=== PATIENT | male | born 1990 | race Caucasian/White ===

== ENCOUNTER 2020-05-31 07:18 | Emergency (ER) | payer MEDICAID ==
[~2020-05-31] VITALS: Ht 182.9 cm; Wt 97.1 kg
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
--- NOTE | 2020-05-31 07:40 | NUR ---
BILATERAL EYES WASHED OUT WITH NORMAL SALINE.
--- NOTE | 2020-05-31 08:57 | NUR ---
PATIENT STS HE FEELS BETTER, ABLE TO OPEN EYES AND SEE CLEARLY. NO DISTRESS OR PAIN REPORTED. NEEDS ATTENDED. Patient given written and verbal discharge instructions. Patient verbalizes understanding of instructions. Patient is ambulatory with steady gait. Refuses offer of [facility] placement. Patient given list of available shelters in surrounding area.
[2020-05-31 09:01] VITALS: BP 132/90
== END 2020-05-31 09:02 | disposition home or self-care (01) ==
LOC: ER 07:23
DX: H10.213 Acute toxic conjunctivitis, bilateral (principal); Y08.89XA Assault by other specified means, initial encounter; Y93.89 Activity, other specified; Y92.89 Other specified places as the place of occurrence of the external cause; Y99.8 Other external cause status

== ENCOUNTER 2020-11-16 08:35 | Emergency (ER) | payer MEDICAID ==
[~2020-11-16] VITALS: Ht 182.9 cm; Wt 81.6 kg
[2020-11-16 08:44] VITALS: BP 134/75
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
[2020-11-16] MEDS ORDERED: IBUP-1955 PO (09:35)
[2020-11-16] MEDS ORDERED: IBUPROFEN 600 MG TABLET ONE (09:37)
--- NOTE | 2020-11-16 09:55 | NUR ---
MOTRIN 600 MG PO GIVEN FOR C/O RIGHT HAND PAIN 11/19. WILL CONTINUE TO MONITOR.
[2020-11-16] MEDS ORDERED: IBUPROFEN 600 MG TABLET PO ONE (10:00)
--- NOTE | 2020-11-16 10:12 | NUR ---
The patient alert and oriented x4. Denies pain. Patient discharged to home in stable condition. Written and verbal after care instructions given. Patient verbalizes understanding of instruction.
== END 2020-11-16 10:13 | disposition home or self-care (01) ==
LOC: ER 08:37
DX: S60.221A Contusion of right hand, initial encounter (principal); S60.414A Abrasion of right ring finger, initial encounter; S60.416A Abrasion of right little finger, initial encounter; Y08.89XA Assault by other specified means, initial encounter; Y93.89 Activity, other specified; Y92.89 Other specified places as the place of occurrence of the external cause; Y99.8 Other external cause status
CPT/HCPCS: 73130-TC

== ENCOUNTER 2021-07-30 10:50 | Emergency (ER) | payer MEDICAID ==
[~2021-07-30] VITALS: Ht 182.9 cm; Wt 86.2 kg
[~2021-07-30 10:50] MED LIST: IBUP-1955 PO
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
[2021-07-30 12:52] VITALS: BP 131/85
--- NOTE | 2021-07-30 12:52 | NUR ---
Patient discharged to home in stable condition. Written and verbal after care instructions given. Patient verbalizes understanding of instruction.
== END 2021-07-30 12:52 | disposition home or self-care (01) ==
LOC: ER 11:13
DX: T65.891A Toxic effect of other specified substances, accidental (unintentional), initial encounter (principal); T26.61XA Corrosion of cornea and conjunctival sac, right eye, initial encounter; Y93.89 Activity, other specified; Y92.89 Other specified places as the place of occurrence of the external cause; Y99.8 Other external cause status

== ENCOUNTER 2021-09-02 01:59 | Emergency (ER) | payer MEDICAID ==
[~2021-09-02] VITALS: Ht 182.9 cm; Wt 99.8 kg
[2021-09-02 02:40] VITALS: BP 138/89
[2021-09-02] MEDS ORDERED: OXYM15MI4 NS (02:58)
--- NOTE | 2021-09-02 03:03 | NUR ---
Patient discharged to home in stable condition. rx and Written and verbal after care instructions given. Patient verbalizes understanding of instruction.
== END 2021-09-02 03:03 | disposition home or self-care (01) ==
LOC: ER 02:02
DX: R09.81 Nasal congestion (principal); F17.200 Nicotine dependence, unspecified, uncomplicated; Z98.890 Other specified postprocedural states; Z60.2 Problems related to living alone

== ENCOUNTER 2022-04-27 17:27 | Emergency (ER) | payer MEDICAID ==
[~2022-04-27] VITALS: Ht 182.9 cm; Wt 96.2 kg
[~2022-04-27 17:27] MED LIST changes: +OXYM15MI4 NS
[2022-04-27 17:47] VITALS: BP 125/90
--- NOTE | 2022-04-27 19:44 | NUR ---
Patient discharged to home in stable condition. Written and verbal after care instructions given. Patient verbalizes understanding of instruction.
[2022-04-28] MEDS ORDERED: MUPI22OI2 TP (12:23)
== END 2022-04-27 19:44 | disposition home or self-care (01) ==
LOC: ER 17:27
DX: Z53.21 Procedure and treatment not carried out due to patient leaving prior to being seen by health care provider (principal)

== ENCOUNTER 2022-04-28 11:07 | Emergency (ER) | payer MEDICAID ==
[~2022-04-28] VITALS: Ht 182.9 cm; Wt 96.2 kg
[2022-04-28 11:30] VITALS: BP 136/90
[2022-04-28] MEDS ORDERED: LIDOCAINE 1% INJ 50 ML MDV IJ ONE (11:30)
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
[2022-04-28] MEDS ORDERED: MUPI22OI2 TP (12:23)
--- NOTE | 2022-04-28 12:31 | NUR ---
Patient discharged to home in stable condition. Written and verbal after care instructions given. Patient verbalizes understanding of instruction.
== END 2022-04-28 12:31 | disposition home or self-care (01) ==
LOC: ER 11:09
DX: L02.511 Cutaneous abscess of right hand (principal); F17.200 Nicotine dependence, unspecified, uncomplicated; Z60.2 Problems related to living alone; Z79.899 Other long term (current) drug therapy

== ENCOUNTER 2022-08-31 22:34 | Emergency (ER) | payer MEDICAID ==
[~2022-08-31] VITALS: Ht 182.9 cm; Wt 99.8 kg
[~2022-08-31 22:34] MED LIST changes: +MUPI22OI2 TP
[2022-08-31 22:48] VITALS: BP 136/94
[2022-09-01] MEDS ORDERED: IBUPROFEN 600 MG TABLET ONE (00:03)
--- NOTE | 2022-09-01 00:05 | NUR ---
Patient discharged to home in stable condition. Written and verbal after care instructions given. Patient verbalizes understanding of instruction. Pt ambulatory with a steady gait
[2022-09-01] MEDS ORDERED: IBUPROFEN 600 MG TABLET PO ONE (00:30)
== END 2022-09-01 00:08 | disposition home or self-care (01) ==
LOC: ER 22:35
DX: H00.015 Hordeolum externum left lower eyelid (principal); F17.200 Nicotine dependence, unspecified, uncomplicated; Z98.890 Other specified postprocedural states; Z60.2 Problems related to living alone; Z79.899 Other long term (current) drug therapy

== ENCOUNTER 2022-10-05 04:05 | Emergency (ER) | payer MEDICAID ==
[~2022-10-05] VITALS: Ht 190.5 cm; Wt 107.7 kg
--- NOTE | 2022-10-05 04:40 | NUR ---
SEEN AND EXAMINED BY DR MCCRACKEN
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
--- NOTE | 2022-10-05 05:08 | NUR ---
PT BROUGHT TO CT DEPT
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
--- NOTE | 2022-10-05 05:31 | NUR ---
[facility] AT BEDSIDE
[2022-10-05] MEDS ORDERED: NABU-141 PO (05:46)
[2022-10-05] MEDS ORDERED: LEVETIRACETAM (500MG) 500 MG in IV NS 0.9% 100 ML IV SCH (06:30)
[2022-10-05 06:36] VITALS: BP 151/93
--- NOTE | 2022-10-05 06:36 | NUR ---
Patient discharged to home in stable condition. Written and verbal after care instructions given. Patient verbalizes understanding of instruction. Pt ambulatory with a steady gait
== END 2022-10-05 06:36 | disposition home or self-care (01) ==
LOC: ER 04:09
DX: S00.83XA Contusion of other part of head, initial encounter (principal); F17.200 Nicotine dependence, unspecified, uncomplicated; Z98.890 Other specified postprocedural states; Z60.2 Problems related to living alone; Z79.899 Other long term (current) drug therapy; Y09 Assault by unspecified means; Y93.89 Activity, other specified; Y92.89 Other specified places as the place of occurrence of the external cause; Y99.8 Other external cause status
CPT/HCPCS: 70486-TC; J1953; J7030

== ENCOUNTER 2024-08-08 19:55 | Emergency (ER) | payer OTHER ==
[~2024-08-08] VITALS: Ht 182.9 cm; Wt 95.3 kg
[~2024-08-08 19:55] MED LIST changes: +NABU-141 PO
[2024-08-09 00:15] VITALS: BP 136/82; TEMP 98.1; O2SAT 98
[2024-08-10 06:07] LABS: RAPID PLASMA REAGIN QUAL. Non Reactive (Non Reactive)
[2024-08-11 11:36] LABS: HIV-1 p24 ANTIGEN NON REACTIVE (NONREACTIVE); HIV-1/2 ANTIBODY NON REACTIVE (NONREACTIVE)
== END 2024-08-09 00:16 | disposition home or self-care (01) ==
LOC: ER 19:58
DX: R68.84 Jaw pain (principal); F17.200 Nicotine dependence, unspecified, uncomplicated; Z60.2 Problems related to living alone
CPT/HCPCS: 36415; 70486-TC; 86592; 86593; 87806

== ENCOUNTER 2024-08-12 00:58 | Emergency (ER) | payer OTHER | END 2024-08-12 02:48 | disposition left against medical advice (07) | LOC: ER 01:20 | DX: Z53.21 Procedure and treatment not carried out due to patient leaving prior to being seen by health care provider (principal) ==